=== PATIENT | male | born 1960 | race African-American/Black ===

== ENCOUNTER 2022-06-18 13:20 | Inpatient (IN) | payer MEDICARE, MEDICAID ==
[~2022-06-18] VITALS: Ht 188 cm; Wt 81.6 kg
[~2022-06-18 13:20] MED LIST: ENALAPRIL
[2022-06-18 14:10] LABS: BASOPHILS % 0.9 % (0.0-2.0); EOSINOPHILS % 13.9 % (0.0-5.0); HEMATOCRIT. 39.6 % (42.0-52.0); HEMOGLOBIN. 13.5 g/dL (14.0-18.0); LYMPHOCYTES % 17.5 % (20.0-50.0); MEAN CORPUSCULAR HEMOGLOBIN 29.9 pg (28.0-32.0); MONOCYTES % 13.6 % (2.0-8.0); NEUTROPHILS % 54.1 % (40.0-76.0); RED CELL DISTRIBUTION WIDTH 15.7 % (11.6-14.6)
[2022-06-18 14:20] LABS: PROTHROMBIN TIME 11.2 sec (9.6-11.0)
[2022-06-18 14:34] LABS: CHLORIDE 102 mEq/L (98-107)
[2022-06-18] MEDS ORDERED: FUROSEMIDE 20MG TABLET PO NR (16:30)
[2022-06-18 21:00] VITALS: BP 127/87
[2022-06-18] MEDS ORDERED: ASPI-1497 PO (21:50)
[2022-06-18] MEDS ORDERED: HYDR12.54 MT (21:50)
[2022-06-18] MEDS ORDERED: ACETAMINOPHEN 325MG TABLET PO PRN (23:45)
[2022-06-18] MEDS ORDERED: ONDANSETRON HCL 4MG/2ML INJ IV PRN (23:45)
[2022-06-18] MEDS ORDERED: IPRATROPIUM/ALBUTEROL 0.5-3(2.5)MG/3ML NEB NEB PRN (23:45)
[2022-06-18] MEDS ORDERED: CLONIDINE 0.1MG TABLET PO PRN (23:45)
[2022-06-18] MEDS ORDERED: HYDROCODONE/ACETAMINOPHEN 5/325MG TABLET PO PRN (23:45)
[2022-06-19] VITALS: BP 119/83
[2022-06-19] MEDS: OMEPRAZOLE 20MG CAPSULE EXTENDED RELEASE PO SCH ×2 (00:12→06:35)
[2022-06-19 04:00] VITALS: BP 123/99
[2022-06-19] MEDS ORDERED: ENOXAPARIN 40MG/0.4ML SYR SUBCUT SCH (09:00)
[2022-06-19 09:37] LABS: CREATINE KINASE 64 IU/L (39-308); CREATINE KINASE MB FRACTION 1.8 ng/mL (0.5-3.6)
== END 2022-06-19 08:05 | disposition left against medical advice (07) | DRG 301 ==
LOC: ER 13:20 → EDBEDREQTM 17:45 → EDBEDREQSVC 17:45 → EDBEDREQ 17:45 → 6EST 21:20
PROVIDERS: ADMIT Internal Medicine; ATTEND Internal Medicine
DX: I83.892 Varicose veins of left lower extremity with other complications (principal); I11.0 Hypertensive heart disease with heart failure; I50.9 Heart failure, unspecified; Z53.29 Procedure and treatment not carried out because of patient's decision for other reasons; Z86.718 Personal history of other venous thrombosis and embolism
CPT/HCPCS: 36415; 71045; 80053; 82550; 82553; 84484; 85025; 85379; 93005; 93970; 99283; 99285